=== PATIENT | female | born 1975 | race Asian ===

== ENCOUNTER 2017-02-27 20:20 | Emergency (ER) | payer OTHER ==
[~2017-02-27] VITALS: Ht 172.7 cm; Wt 131.1 kg
[2017-02-27] MEDS ORDERED: CYCL10TA35 PO (20:36)
[2017-02-27] MEDS ORDERED: GABA100C2 PO (20:36)
[2017-02-27] MEDS ORDERED: PEPCID40 MG OR (20:36)
[2017-02-27 20:56] VITALS: BP 111/64; TEMP 98.9
== END 2017-02-27 20:57 | disposition home or self-care (01) ==
LOC: ED 20:20
DX: M54.89 Other dorsalgia (principal)

== ENCOUNTER 2018-05-16 21:22 | Outpatient (CLI) | payer OTHER ==
[~2018-05-16 21:22] MED LIST: CYCL10TA35 PO; GABA100C2 PO; PEPCID40 MG OR
== END 2018-05-16 21:27 | disposition short-term general hospital (02) ==
LOC: AMB 21:22
DX: R40.4 Transient alteration of awareness (principal); F10.10 Alcohol abuse, uncomplicated; F12.10 Cannabis abuse, uncomplicated
CPT/HCPCS: A0425; A0427

== ENCOUNTER 2018-05-16 21:35 | Emergency (ER) | payer OTHER ==
[2018-05-16 22:26] LABS: PLATELET COUNT 304 K/uL (152-353)
[2018-05-16 22:38] LABS: POTASSIUM 3.8 mmol/L (3.6-5.2); SODIUM 144 mmol/L (136-145)
== END 2018-05-17 00:27 | disposition left against medical advice (07) ==
LOC: ED 21:35 → MED/SURG 23:20 → ED 23:20 → MED/SURG 05-17 → ED 05-17 00:27
DX: R55 Syncope and collapse (principal); R56.9 Unspecified convulsions; F12.10 Cannabis abuse, uncomplicated; F15.10 Other stimulant abuse, uncomplicated; F10.129 Alcohol abuse with intoxication, unspecified
CPT/HCPCS: 80053; 80307; 80320; 81000; 82550; 82553; 84484; 85027; 93005; 96360; 99284

== ENCOUNTER 2018-10-16 17:51 | Outpatient (CLI) | payer OTHER | END 2018-10-16 17:57 | disposition short-term general hospital (02) | LOC: AMB 17:51 | DX: R52 Pain, unspecified (principal) | CPT/HCPCS: A0425; A0427 ==

== ENCOUNTER 2018-10-16 18:03 | Emergency (ER) | payer OTHER ==
[~2018-10-16] VITALS: Ht 165.1 cm; Wt 121.1 kg
[2018-10-16 18:56] LABS: PLATELET COUNT 279 K/uL (152-353)
[2018-10-16 19:36] VITALS: BP 130/85; TEMP 98
== END 2018-10-16 19:55 | disposition home or self-care (01) ==
LOC: ED 18:03
PROVIDERS: Emergency Medicine
DX: L93.2 Other local lupus erythematosus (principal); G89.4 Chronic pain syndrome; F12.10 Cannabis abuse, uncomplicated; F15.10 Other stimulant abuse, uncomplicated
CPT/HCPCS: 80053; 80307; 81000; 81025; 85027; 96372; 99284; J2175; J3410

== ENCOUNTER 2019-06-11 07:18 | Outpatient (CLI) | payer OTHER | END 2019-06-11 07:24 | disposition short-term general hospital (02) | LOC: AMB 07:18 | DX: M54.2 Cervicalgia (principal); M54.89 Other dorsalgia; M79.7 Fibromyalgia | CPT/HCPCS: A0425; A0429 ==

== ENCOUNTER 2019-06-11 07:28 | Emergency (ER) | payer OTHER ==
[~2019-06-11] VITALS: Ht 172.7 cm; Wt 158.8 kg
[2019-06-11 07:28] VITALS: TEMP 97.9
[2019-06-11 08:07] LABS: PLATELET COUNT 284 K/uL (152-353)
[2019-06-11 08:12] LABS: POTASSIUM 4.2 mmol/L (3.6-5.2)
[2019-06-11 10:25] VITALS: BP 159/106
== END 2019-06-11 10:25 | disposition home or self-care (01) ==
LOC: ED 07:28
PROVIDERS: Emergency Medicine
DX: M79.7 Fibromyalgia (principal)
CPT/HCPCS: 36415; 80053; 81000; 85027; 96374; 99284; J1885

== ENCOUNTER 2020-10-24 18:48 | Emergency (ER) | payer OTHER ==
[~2020-10-24] VITALS: Ht 172.7 cm; Wt 145.2 kg
[2020-10-24 19:47] LABS: PLATELET COUNT 267 K/uL (152-353)
[2020-10-24 19:58] LABS: POTASSIUM 3.9 mmol/L (3.6-5.2)
[2020-10-24 21:56] VITALS: BP 126/75; TEMP 98.1
== END 2020-10-24 21:57 | disposition still patient (30) ==
LOC: ED 18:48
PROVIDERS: Family Medicine
DX: M32.9 Systemic lupus erythematosus, unspecified (principal); M79.7 Fibromyalgia; G89.4 Chronic pain syndrome
CPT/HCPCS: 80053; 81000; 85008; 85027; 96365; 96375; 99284; J2175; J2550

== ENCOUNTER 2021-05-14 18:12 | Emergency (ER) | payer OTHER ==
[~2021-05-14] VITALS: Ht 172.7 cm; Wt 139.7 kg
[2021-05-14 19:04] LABS: PLATELET COUNT 244 K/uL (152-353)
[2021-05-14 19:15] LABS: POTASSIUM 3.7 mmol/L (3.6-5.2)
[2021-05-14 20:15] LABS: PARTIAL THROMBOPLASTIN TIME 22.1 SECONDS (24.5-33.6)
[2021-05-15 01:07] VITALS: BP 144/67; TEMP 98.4
== END 2021-05-15 01:07 | disposition still patient (30) ==
LOC: ED 18:12
PROVIDERS: Hospitalist
DX: R10.84 Generalized abdominal pain (principal); R11.2 Nausea with vomiting, unspecified; M25.562 Pain in left knee; W18.39XA Other fall on same level, initial encounter; Y92.89 Other specified places as the place of occurrence of the external cause
CPT/HCPCS: 36415; 80053; 81000; 81025; 82150; 83690; 85008; 85027; 85610; 85730; 96360; 96361; 96375; 99284; J2270; Q9963

== ENCOUNTER 2021-12-27 19:59 | Emergency (ER) | payer OTHER ==
[~2021-12-27] VITALS: Ht 170.2 cm; Wt 163.3 kg
[2021-12-27 20:44] LABS: PLATELET COUNT 246 K/uL (152-353)
[2021-12-27 20:52] LABS: POTASSIUM 3.9 mmol/L (3.6-5.2)
[2021-12-27 21:02] LABS: PARTIAL THROMBOPLASTIN TIME 21.7 SECONDS (24.5-33.6)
[2021-12-28 03:36] VITALS: BP 145/84; TEMP 98.5
== END 2021-12-28 03:36 | disposition home or self-care (01) ==
LOC: ED 19:59
PROVIDERS: Emergency Medicine
DX: R10.12 Left upper quadrant pain (principal)
CPT/HCPCS: 36415; 80053; 81002; 84484; 85027; 85379; 85610; 85730; 93005; 96360; 96374; 99284; J1885; J2270; J2405